=== PATIENT | male | born 1985 ===

== ENCOUNTER 2017-04-25 08:49 | Emergency (ER) | payer BC ==
[2017-04-25 08:56] VITALS: BMI 23.7
[2017-04-25 09:16] VITALS: BP 129/73; PULSE 99; RESP 18; TEMP 98.8; O2SAT 100
[2017-04-25] MEDS ORDERED: Lidocaine 1% Inj (20ml) ONE (09:19)
[2017-04-25] MEDS: Lidocaine 1% Inj (20ml) INFIL ONE (09:30)
--- NOTE | 2017-04-25 09:54 | C.PDOC ---
History Of Present Illness 31 y/o male presents to ED for evaluation and repair of a turtle bite on lower lip. Patient states he was playing with his pet turtle and was bit on the lip. Patient sustained a semi-circular avulsion to the lip with minimal active bleeding. Patient denies fever, chills, n/v/d or any other complaints at this time. Time Seen by Provider: 04/25/17 09:03 Chief Complaint (Nursing): Abnormal Skin Integrity History Per: Patient History/Exam Limitations: no limitations Onset/Duration Of Symptoms: Hrs Past Medical History Reviewed: Historical Data, Nursing Documentation, Vital Signs Vital Signs: Last Vital Signs Temp 98.8 F 04/25/17 08:56 Pulse 99 H 04/25/17 08:56 Resp 18 04/25/17 10:03 BP 129/73 04/25/17 08:56 Pulse Ox 100 04/25/17 10:32 Surgical History: Appendectomy Family History: States: No Known Family Hx - Social History Hx Alcohol Use: No Hx Substance Use: No - Immunization History Hx Tetanus Toxoid Vaccination: No Hx Influenza Vaccination: No Hx Pneumococcal Vaccination: No Review Of Systems Except As Marked, All Systems Reviewed And Found Negative. Constitutional: Negative for: Fever, Chills Gastrointestinal: Negative for: Nausea, Vomiting, Diarrhea Physical Exam - Physical Exam Appears: Non-toxic, No Acute Distress Skin: Normal Color, Warm Head: Atraumatic, Normacephalic Lips: Swelling (right lower lip), Other (Bruising to right lower lip, 1.5cm semi circular avulsion of tissue, minimal bleeding) Neurological/Psych: Oriented x3, Normal Speech ED Course And Treatment O2 Sat by Pulse Oximetry: 100 (RA) Pulse Ox Interpretation: Normal Laceration - Laceration Repair right lower lip Wound Length (In cm): 1 Wound Cleansed With: Sterile Saline Anesthesia: Lidocaine 1% Wound Closure: Steri Strips, Suture (6-O absorbable ) Wound Complexity: Simple Disposition - Disposition Disposition: HOME/ ROUTINE Disposition Time: 09:52 Condition: STABLE Additional Instructions: Follow up with your doctor as needed. Leave steri-strip in place until it falls off. Return to the ED with any other concerns. i Prescriptions: Sulfamethoxazole/Trimethoprim [Bactrim DS 800 mg-160 mg] 1 tab PO BID #14 tab Instructions: Animal Bite (ED) Forms: General Discharge Instructions - POA Present On Arrival: None - Clinical Impression Clinical Impression: Animal bite of face - Scribe Statement The provider has reviewed the documentation as recorded by the Scribporsha Houston All medical record entries made by the Ajibe were at my direction and personally dictated by me. I have reviewed the chart and agree that the record accurately reflects my personal performance of the history, physical exam, medical decision making, and the department course for this patient. I have also personally directed, reviewed, and agree with the discharge instructions and disposition.
[2017-04-25] MEDS ORDERED: Tmp-Smz 800 mg-160 mg DS Tab ONE (10:02)
[2017-04-25] MEDS: Tmp-Smz 800 mg-160 mg DS Tab PO STA (10:03)
== END 2017-04-25 10:04 | disposition home or self-care (01) ==
LOC: C.ER 08:49
DX: S01.551A Open bite of lip, initial encounter (principal); W59.21XA Bitten by turtle, initial encounter

== ENCOUNTER 2018-10-11 14:00 | Emergency (ER) | payer BC ==
[2018-10-11 14:00] VITALS: BMI 23.7
[2018-10-11 14:07] VITALS: RESP 18; TEMP 98.2; O2SAT 100
--- NOTE | 2018-10-11 16:15 | C.PDOC ---
History Of Present Illness Patient avery he was watching TV holding his child leaning to his left shoulder when he developed pain in the shoulder radiating to the left arm. Patient sts he got scared and panicking, had palpitations that prompted ER visit. 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 denies: Anger, Agitation, Depression, Paranoia, Suicidal Thoughts, Suicidal Plan Past Medical History Reviewed: Historical Data, Nursing Documentation, Vital Signs Vital Signs: Last Vital Signs Temp 98.2 F 10/11/18 14:06 Pulse 106 H 10/11/18 14:06 Resp 18 10/11/18 14:06 BP 132/80 10/11/18 14:06 Pulse Ox 100 10/11/18 14:06 - Medical History PMH: Anxiety Surgical History: Appendectomy Family History: States: Unknown Family Hx - Social History Hx Alcohol Use: Yes Hx Substance Use: No - Immunization History Hx Tetanus Toxoid Vaccination: No Hx Influenza Vaccination: No Hx Pneumococcal Vaccination: No Review Of Systems Except As Marked, All Systems Reviewed And Found Negative. Physical Exam - Physical Exam Appears: Well, Non-toxic, No Acute Distress Skin: Normal Color, No Rash Head: Atraumatic, Normacephalic Eye(s): bilateral: Normal Inspection Tongue: Normal Appearing Lips: Normal Appearing Neck: Normal, Normal ROM Lymphatic: No Adenopathy Chest: Symmetrical, No Tenderness Cardiovascular: Rhythm Regular Respiratory: Normal Breath Sounds, No Rales, No Rhonchi, No Wheezing Gastrointestinal/Abdominal: Soft, No Tenderness Extremity: Normal ROM, Tenderness (diffuse tenderness of the left shoulder, no erythema), No Deformity, No Swelling Neurological/Psych: Oriented x3, Normal Speech, Normal Cognition, Normal Motor, Normal Sensation ED Course And Treatment ECG Rhythm: Sinus Rhythm Rate From EC O2 Sat by Pulse Oximetry: 100 Pulse Ox Interpretation: Normal - Radiology CXR: Interpreted by Me CXR Interpretation: Yes: No Acute Disease - Other Rad Left shoulder X-Ray: Interpreted by Me Interpretation: No acute abnormality seen Progress Note: Patient is stable to be d/c home with PMD follow up. Disposition - Disposition Disposition: HOME/ ROUTINE Disposition Time: 16:19 Condition: STABLE Additional Instructions: Follow up with PMD within 1-2 days. Return to ED if feel worse. Prescriptions: Lidocaine 5% [Lidoderm] 1 patch TP DAILY #30 patch Ibuprofen [Motrin Tab] 600 mg PO Q8 #30 tab ALPRAZolam [Xanax] 0.25 mg PO TID PRN #6 tab PRN Reason: Anxiety Instructions: Anxiety, Adult (DC), Shoulder Pain (DC) Forms: [facility] (German) - Clinical Impression Clinical Impression: Anxiety, Shoulder pain
[2018-10-11 16:28] VITALS: BP 116/76; PULSE 81
--- NOTE | 2018-10-11 17:46 | RAD ---
HISTORY: left shoulder pain COMPARISON: No prior. TECHNIQUE: Chest PA and lateral FINDINGS: LUNGS: No focal consolidation. Please note that chest x-ray has limited sensitivity for the detection of pulmonary masses. PLEURA: No significant pleural effusion identified. No definite pneumothorax . CARDIOVASCULAR: Heart size appears within normal limits. No atherosclerotic calcification present. OSSEOUS STRUCTURES: No acute osseous abnormality identified. VISUALIZED UPPER ABDOMEN: Unremarkable. OTHER FINDINGS: None. IMPRESSION: No focal consolidation.
--- NOTE | 2018-10-11 17:48 | RAD ---
PROCEDURE: Radiographs of the Left Shoulder HISTORY: atraumatic pain COMPARISON: No prior. FINDINGS: BONES: No acute displaced fracture. The distal clavicle and underlying ribs appear intact. JOINTS: No acute dislocation. SOFT TISSUES: Soft tissues appear unremarkable. No evidence of radiopaque foreign body. IMPRESSION: No acute displaced fracture or dislocation evident. If symptoms persist or if there is continued clinical concern, x-ray follow-up in 7-10 days should be considered.
--- NOTE | 2018-10-13 17:16 | CARD ---
APPROVED REPORT Date of service: 10/11/2018 EKG Measurement Heart [id number] <Conclusion> Normal sinus rhythm Normal ECG
== END 2018-10-11 16:28 | disposition home or self-care (01) ==
LOC: C.ER 14:00
DX: F41.9 Anxiety disorder, unspecified (principal); M25.512 Pain in left shoulder

== ENCOUNTER 2018-10-12 12:20 | Emergency (ER) | payer BC ==
[2018-10-12 12:20] VITALS: BMI 23.7
[2018-10-12 12:42] VITALS: RESP 16; O2SAT 98
[2018-10-12 13:31] LABS: URINE BILIRUBIN NEGATIVE (NEGATIVE); URINE BLOOD 2+ (NEGATIVE); URINE CLARITY Clear (Clear); URINE COLOR Yellow (YELLOW); URINE GLUCOSE (UA) NORMAL (Normal); URINE LEUKOCYTE ESTERASE NEG Leu/uL (Negative); URINE PROTEIN NEGATIVE (NEGATIVE); URINE UROBILINOGEN NORMAL mg/dL (0.2-1.0)
[2018-10-12 13:43] LABS: BARBITURATES, UR NEGATIVE (NEGATIVE); BENZODIAZEPINES, UR NEGATIVE (NEGATIVE); OPIATES, UR NEGATIVE (NEGATIVE); PHENCYCLIDINE, UR NEGATIVE (NEGATIVE)
--- NOTE | 2018-10-12 14:02 | C.PDOC ---
History Of Present Illness 33-year-old male presents to the ED for evaluation of left ankle pain, left shoulder pain, and left-sided facial numbness that began today in the morning. Patient reports he woke up with his current symptoms, numbness has since resolved. He states having chronic ankle pain s/p surgery (more than 2 years ago). The patient also notes prior ED visit 1 day ago where he was treated and diagnosed with anxiety attack, given Xanax, and noted improvement. Denies fever, nausea, vomiting, changes in speech, and any other associated symptoms. Time Seen by Provider: 10/12/18 13:09 Chief Complaint (Nursing): Weakness/Neurological Deficit History Per: Patient History/Exam Limitations: no limitations Onset/Duration Of Symptoms: Hrs Current Symptoms Are (Timing): Still Present Recent travel outside of the [place]: No Past Medical History Reviewed: Historical Data, Nursing Documentation, Vital Signs Vital Signs: Last Vital Signs Temp 98 F 10/12/18 12:39 Pulse 92 H 10/12/18 12:39 Resp 16 10/12/18 12:39 BP 118/74 10/12/18 12:39 Pulse Ox 98 10/12/18 12:39 - Medical History PMH: Anxiety Surgical History: Appendectomy Family History: States: Unknown Family Hx - Social History Hx Alcohol Use: Yes Hx Substance Use: No - Immunization History Hx Tetanus Toxoid Vaccination: No Hx Influenza Vaccination: No Hx Pneumococcal Vaccination: No Review Of Systems Except As Marked, All Systems Reviewed And Found Negative. Constitutional: Negative for: Fever Gastrointestinal: Negative for: Nausea, Vomiting Musculoskeletal: Positive for: Other ((+) left ankle pain. (+) left shoulder pain.) Neurological: Positive for: Numbness (left-sided facial numbness.). Negative for: Other (speech changes. ) Physical Exam - Physical Exam Appears: Well, Non-toxic, No Acute Distress Skin: Normal Color, Warm, Dry Head: Atraumatic, Normacephalic Eye(s): bilateral: Normal Inspection Oral Mucosa: Moist Neck: Normal ROM, Supple Chest: Symmetrical, No Deformity Cardiovascular: Rhythm Regular, No Murmur Respiratory: Normal Breath Sounds, No Rales, No Rhonchi, No Wheezing Gastrointestinal/Abdominal: Normal Exam, Soft, No Tenderness Neurological/Psych: Oriented x3, Normal Speech, Normal Cognition, Normal Cranial Nerves, Normal Motor, Normal Sensation, Normal Reflexes, Other (no signs of stroke, NIH score is Zero.) ED Course And Treatment O2 Sat by Pulse Oximetry: 98 (RA) Pulse Ox Interpretation: Normal Medical Decision Making Medical Decision Making: Plan: -Drug screen. -Glucose POC -Urinalysis. Progress/Update: Patient stable for discharge home. Disposition Counseled Patient/Family Regarding: Diagnosis - Disposition Disposition: HOME/ ROUTINE Disposition Time: 14:02 Condition: STABLE Instructions: Paresthesias (DC) Forms: [facility] (Spanish), General Discharge Instructions - Clinical Impression Clinical Impression: Paresthesia - Scribe Statement The provider has reviewed the documentation as recorded by the Scribe (Christal Beavers) Provider Attestation: All medical record entries made by the Scribe were at my direction and personally dictated by me. I have reviewed the chart and agree that the record accurately reflects my personal performance of the history, physical exam, medical decision making, and the department course for this patient. I have also personally directed, reviewed, and agree with the discharge instructions and disposition.
[2018-10-12 14:29] VITALS: BP 129/79; PULSE 98; TEMP 98.7
== END 2018-10-12 14:29 | disposition home or self-care (01) ==
LOC: C.ER 12:20
DX: R20.2 Paresthesia of skin (principal)
CPT/HCPCS: 81001; 82948; 99285; G0480

== ENCOUNTER 2018-10-14 09:17 | Emergency (ER) | payer BC ==
[2018-10-14 09:17] VITALS: BMI 23.7
[2018-10-14 09:27] VITALS: RESP 18; TEMP 98.1
[2018-10-14 10:13] LABS: SQUAMOUS EPITHIAL < 1 /hpf (0-5); URINE BILIRUBIN NEGATIVE (NEGATIVE); URINE BLOOD 3+ (NEGATIVE); URINE CLARITY Clear (Clear); URINE COLOR Yellow (YELLOW); URINE GLUCOSE (UA) NORMAL (Normal); URINE LEUKOCYTE ESTERASE TRACE Leu/uL (Negative); URINE PROTEIN 1+ mg/dL (NEGATIVE); URINE UROBILINOGEN NORMAL mg/dL (0.2-1.0)
--- NOTE | 2018-10-14 10:55 | RAD ---
Date of service: 10/14/2018 PROCEDURE: Radiographs of the Lumbar Spine. HISTORY: back pain COMPARISON: No prior. FINDINGS: BONES: Alignment appears satisfactory. No listhesis. No acute displaced fracture identified. DISC SPACES: Unremarkable. OTHER FINDINGS: None. IMPRESSION: No acute displaced fracture or subluxation.
--- NOTE | 2018-10-14 11:10 | C.PDOC ---
History Of Present Illness 33 y/o male presents today with complaints of right lower back pain. Associated with sensation of bladder fullness, but no urinary retention or incontinence. Patient denies any extremity weakness, and is ambulatory in the ED. He also reports intermittent numbness to the right leg. No trauma, injury, or fever. Incidentally patient was seen for anxiety 2 days ago and shoulder pain the day after. He also saw his PMD and is scheduled to see neurology 11/13 for the same complaint. Time Seen by Provider: 10/14/18 09:35 Chief Complaint (Nursing): Lower Extremity Problem/Injury History Per: Patient History/Exam Limitations: no limitations Onset/Duration Of Symptoms: Days Current Symptoms Are (Timing): Still Present Past Medical History Reviewed: Historical Data, Nursing Documentation, Vital Signs Vital Signs: Last Vital Signs Temp 98.1 F 10/14/18 09:25 Pulse 106 H 10/14/18 09:25 Resp 18 10/14/18 09:25 BP 133/86 10/14/18 09:25 Pulse Ox 99 10/14/18 09:25 - Medical History PMH: Anxiety Surgical History: Appendectomy Family History: States: Unknown Family Hx - Social History Hx Alcohol Use: Yes Hx Substance Use: No - Immunization History Hx Tetanus Toxoid Vaccination: No Hx Influenza Vaccination: No Hx Pneumococcal Vaccination: No Review Of Systems Except As Marked, All Systems Reviewed And Found Negative. Constitutional: Negative for: Fever, Chills Gastrointestinal: Negative for: Abdominal Pain Genitourinary: Positive for: Other (Bladder fullness). Negative for: Dysuria, Frequency, Incontinence Musculoskeletal: Positive for: Back Pain (right lower) Skin: Negative for: Rash, Lesions Neurological: Positive for: Numbness (right leg). Negative for: Weakness Physical Exam - Physical Exam Appears: Non-toxic, No Acute Distress Skin: Normal Color, Warm, Dry Head: Atraumatic, Normacephalic Eye(s): bilateral: Normal Inspection, PERRL, EOMI Oral Mucosa: Moist Neck: Normal ROM Chest: Symmetrical Back: CVA Tenderness (Right-sided), No Vertebral Tenderness, Paraspinal Tenderness (right paralumbar tenderness), Other (No gross deformity) Extremity: Bilateral: Atraumatic, Normal Color And Temperature, Other (Pulses equal at DP/TP, neurovascularly intact) Pulses: Left Dorsalis Pedis: Normal, Right Dorsalis Pedis: Normal Neurological/Psych: Oriented x3, Normal Cranial Nerves (2-12 grossly intact), Normal Reflexes, Other (No focal deficits) Gait: Steady ED Course And Treatment O2 Sat by Pulse Oximetry: 99 (RA) Pulse Ox Interpretation: Normal - Other Rad x-ray LS spine X-Ray: Read By Radiologist Interpretation: Accession No. : [id number]. Patient Name / ID : JAM COX / [id number]. Exam Date : 10/14/2018 10:05:26 ( Approved ). Study Comment : Sex / Age : M / 33Y. Creator : Chata Shirley MD. Dictator : Chata Shirley MD. Pecan Huller : Bookbinder Chief : Chata Shirley MD. Approver2 : Report Date : 10/14/2018 10:51:54. My Comment : . Date of service: 10/14/2018. PROCEDURE: Radiographs of the Lumbar Spine. HISTORY: back pain. COMPARISON: No prior. FINDINGS: BONES: Alignment appears satisfactory. No listhesis. No acute displaced fracture identified. DISC SPACES: Unremarkable. OTHER FINDINGS: None. IMPRESSION: No acute displaced fracture or subluxation. Medical Decision Making Medical Decision Making: Impression: Low back pain Plan: --Urinalysis --Urine culture --LS spine x-ray --Motrin 600 mg PO UA reviewed. Given microscopic blood in urine, will order CT Abd/Pelvis for stone evaluation. Disposition Discussed With : Vannesa Henderson - Disposition Disposition Time: 12:00 Condition: STABLE Forms: [facility] (Armenian) - Clinical Impression Clinical Impression: Flank pain - Scribe Statement The provider has reviewed the documentation as recorded by the Ajibporsha Ward Provider Attestation: All medical record entries made by the Scribe were at my direction and personally dictated by me. I have reviewed the chart and agree that the record accurately reflects my personal performance of the history, physical exam, medical decision making, and the department course for this patient. I have also personally directed, reviewed, and agree with the discharge instructions and disposition. Physician Patient Turnover Patient Signed Over To: Vannesa Henderson Handoff Comments: pending ct scan of abd/pelvis, reevaluation and disposition.
--- NOTE | 2018-10-14 11:56 | CT ---
PROCEDURE: CT Abdomen and Pelvis without Oral or IV contrast. HISTORY: right cva tenderness COMPARISON: None available TECHNIQUE: Contiguous axial images of the abdomen and pelvis. No oral or IV contrast administered. Coronal and Sagittal reformats generated and reviewed. Radiation dose: Total exam DLP = 664.61 mGy-cm. This CT exam was performed using one or more of the following dose reduction techniques: Automated exposure control, adjustment of the mA and/or kV according to patient size, and/or use of iterative reconstruction technique. FINDINGS: There is limited evaluation of the solid organs without the administration of IV contrast. LOWER THORAX: No visible consolidation, pleural effusion, or pneumothorax. LIVER: Unremarkable. GALLBLADDER AND BILE DUCTS: Unremarkable. PANCREAS: Unremarkable. SPLEEN: Unremarkable. ADRENALS: Unremarkable. KIDNEYS AND URETERS: No hydronephrosis or obstructing renal calculus. BLADDER: The urinary bladder appears unremarkable. REPRODUCTIVE: Unremarkable. APPENDIX: The appendix is not identified. No secondary signs of acute appendicitis. BOWEL: The stomach is nondistended. Lack of oral contrast limits evaluation for bowel pathology. The bowel loops appear within normal limits of caliber without evidence of intestinal obstruction. Diverticulosis without CT evidence of acute diverticulitis. Colonic wall thickening of the right and proximal transverse colon may be exaggerated by under distension; correlate clinically for possibility of colitis. PERITONEUM: No significant free fluid. No definite free air. LYMPH NODES: No bulky lymphadenopathy identified. VASCULATURE: No atherosclerotic calcifications. No aortic aneurysm. BONES: No acute osseous abnormality is detected. OTHER FINDINGS: None. IMPRESSION: Colonic wall thickening of the right and proximal transverse colon may be exaggerated by under distension; correlate clinically for possibility of colitis. Diverticulosis without CT evidence of acute diverticulitis.
[2018-10-14 12:14] VITALS: BP 117/81; PULSE 91; O2SAT 97
== END 2018-10-14 12:14 | disposition home or self-care (01) ==
LOC: C.ER 09:17
DX: R10.9 Unspecified abdominal pain (principal); F41.9 Anxiety disorder, unspecified

== ENCOUNTER 2018-10-28 19:09 | Emergency (ER) | payer BC ==
[2018-10-28 19:09] VITALS: BMI 23.7
[2018-10-28 19:23] VITALS: O2SAT 100
[2018-10-28 20:15] LABS: HEMOGLOBIN 12.9 g/dL (12.0-18.0); MEAN CELL VOLUME 90.4 fL (80.0-94.0); MEAN CORPUSCULAR HEMOGLOBIN 29.8 pg (27.0-31.0); MEAN CORPUSCULAR HGB CONC 32.9 g/dL (33.0-37.0); MEAN PLATELET VOLUME 6.7 fL (7.2-11.7); RBC 4.35 Mil/uL (4.40-5.90); RED CELL DISTRIBUTION WIDTH 13.4 % (11.5-14.5); WHITE BLOOD COUNT 7.6 K/uL (4.8-10.8)
[2018-10-28 20:25] LABS: ALB/GLOB RATIO 1.8 (1.0-2.1); ALBUMIN 4.7 g/dL (3.5-5.0); ALT/SGPT 27 U/L (21-72); AST/SGOT 24 U/L (17-59); BLOOD UREA NITROGEN 16 mg/dL (9-20); CALCIUM 9.3 mg/dl (8.6-10.4); GFR NON-AFRICAN AMERICAN > 60
--- NOTE | 2018-10-28 20:33 | C.PDOC ---
History Of Present Illness 33 y/o M c no PMHx p/w L sided pain/numbness and L facial pain/numbness with posterior eye pressure and difficulty focusing on moving objects x 2 weeks. Patient was in this ED multiple times over the past few weeks for same symptoms. He has since followed up with neurology Dr. Kumar and had MRI spine performed which showed lower spine herniated disc and muscle spasm of L sided neck. Patient states he was concerned because of his persistent eye pain/vision problem. He denies trauma, fever, stiff neck, vomiting, visual field loss, tearing. He states that Dr. Kumar instructed him to be evaluated by an chimney repairer prior to having an MRI brain performed. Time Seen by Provider: 10/28/18 20:03 Chief Complaint (Nursing): Weakness/Neurological Deficit Past Medical History Vital Signs: Last Vital Signs Temp 98.1 F 10/28/18 19:16 Pulse 90 10/28/18 19:16 Resp 14 10/28/18 19:16 BP 118/70 10/28/18 19:16 Pulse Ox 100 10/28/18 19:16 - Medical History PMH: Anxiety Surgical History: Appendectomy Family History: States: Unknown Family Hx - Social History Hx Alcohol Use: Yes Hx Substance Use: No - Immunization History Hx Tetanus Toxoid Vaccination: No Hx Influenza Vaccination: No Hx Pneumococcal Vaccination: No Review Of Systems Except As Marked, All Systems Reviewed And Found Negative. Constitutional: Negative for: Fever Cardiovascular: Negative for: Chest Pain Physical Exam - Physical Exam Additional Physical Exam Comments: Gen: NAD Head: NC/AT Eyes: PERRLA. EOMI. Visual murillo full. No conjunctivitis. No lacrimation. ENT: TMs normal. Neck: Supple. No midline tenderness Chest: No tenderness CV: Regular rate Lungs: CTA b/l Abd: Soft, NT Back: No midline tenderness Extremities: FROM x 4. Skin: No rash Neuro: Alert, sensation to light touch intact bilateral extremities. Motor 5/5 x 4. ED Course And Treatment - Laboratory Results Result Diagrams: 10/28/18 20:09 10/28/18 20:09 O2 Sat by Pulse Oximetry: 100 Medical Decision Making Medical Decision Making: Offered Head CT, educated on risks and benefits, patient decided against given low likelihood of abnormal finding. Ophtho called, Dr. Stephens suspects no abnormality given description of symptoms. States will see patient in office tomorrow as walk in. Disposition - Disposition Referrals: Williams Stephens MD [Staff Provider] - Disposition: HOME/ ROUTINE Disposition Time: 20:32 Condition: STABLE Instructions: Radiculopathy (DC) Forms: [facility] (Upper Sorbian) - Clinical Impression Clinical Impression: Radiculopathy
[2018-10-28 20:40] VITALS: BP 110/71; PULSE 78; RESP 18; TEMP 98.2
== END 2018-10-28 21:23 | disposition home or self-care (01) ==
LOC: C.ER 19:09
DX: M54.10 Radiculopathy, site unspecified (principal)

== ENCOUNTER 2019-03-04 00:23 | Emergency (ER) | payer BC ==
[2019-03-04 08:05] LABS: PROTHROMBIN TIME 10.7 SECONDS (9.7-12.2)
[2019-03-04 11:22] LABS: BARBITURATES, UR NEGATIVE (NEGATIVE); BENZODIAZEPINES, UR NEGATIVE (NEGATIVE); OPIATES, UR NEGATIVE (NEGATIVE); PHENCYCLIDINE, UR NEGATIVE (NEGATIVE)
[2019-03-04 11:57] LABS: BLOOD UREA NITROGEN 14 mg/dL (9-20)
[2019-03-04 11:58] LABS: ALB/GLOB RATIO 1.6 (1.0-2.1); ALBUMIN 4.5 g/dL (3.5-5.0); CALCIUM 9.3 mg/dl (8.6-10.4); GFR NON-AFRICAN AMERICAN > 60
[2019-03-04 11:59] LABS: ALT/SGPT 42 U/L (21-72); AST/SGOT 37 U/L (17-59); B-TYPE NATRIURETIC PEPTIDE < 11.1 pg/mL (0-450)
[2019-03-04 12:42] LABS: BASO % 0.3 % (0.0-2.0); EOS # 0.2 K/uL (0.0-0.7); EOS % 3.2 % (0.0-4.0); HEMOGLOBIN 12.9 g/dL (12.0-18.0); LYMPH # 2.1 K/uL (1.0-4.3); LYMPH % 44.2 % (20.0-40.0); MEAN CELL VOLUME 86.7 fL (80.0-94.0); MEAN CORPUSCULAR HEMOGLOBIN 28.9 pg (27.0-31.0); MEAN CORPUSCULAR HGB CONC 33.3 g/dL (33.0-37.0); MONO # 0.3 K/uL (0.0-0.8); NEUT # 2.1 K/uL (1.8-7.0); NEUT % 45.3 % (50.0-75.0); NRBC % 0.1 % (0.0-2.0); RBC 4.47 Mil/uL (4.40-5.90); WHITE BLOOD COUNT 4.7 K/uL (4.8-10.8)
--- NOTE | 2019-03-04 16:16 | RAD ---
HISTORY: CHEST PAIN COMPARISON: Chest x-ray performed 10/11/18 TECHNIQUE: Chest, one view. FINDINGS: LUNGS: Mild biapical pleural thickening. No focal consolidation. Please note that chest x-ray has limited sensitivity for the detection of pulmonary masses. PLEURA: No significant pleural effusion identified. No definite pneumothorax . CARDIOVASCULAR: The cardiomediastinal silhouette appears within normal limits of size. No significant atherosclerotic calcification present. OSSEOUS STRUCTURES: Degenerative changes of the spine. VISUALIZED UPPER ABDOMEN: Unremarkable. OTHER FINDINGS: None. IMPRESSION: No acute findings identified.
--- NOTE | 2019-03-07 16:26 | CARD ---
APPROVED REPORT Date of service: 03/04/2019 EKG Measurement Heart [id number] <Conclusion> Normal sinus rhythm Normal ECG
== END 2019-03-04 05:00 | disposition home or self-care (01) ==
LOC: C.ER 00:23
DX: M94.0 Chondrocostal junction syndrome [Tietze] (principal); F41.9 Anxiety disorder, unspecified
CPT/HCPCS: 71045; 80053; 83880; 84484; 85025; 85610; 85730; 93005; 99281; G0480